=== PATIENT | male | born 1965 | race Caucasian/White ===

== ENCOUNTER 2022-03-11 21:48 | Inpatient (IN) | payer OTHER ==
[~2022-03-11] VITALS: Ht 177.8 cm; Wt 79.8 kg
[2022-03-11 22:38] LABS: BASOPHILS PERCENT AUTO 0 % (0-2); EOSINOPHILS PERCENT AUTO 0 % (0-6); Hematocrit 26.8 % (37.0-53.0); MONOCYTES PERCENT AUTO 6 % (4-13); Mean Corpuscular Volume 98 fL (80-100); Mean Platelet Volume 10.5 fL (9.1-12.4); Platelet Count 142 K/mm3 (150-400); RDW Coefficient Variation 12.1 % (11.7-14.2); Red Blood Cell Count 2.75 M/mm3 (4.30-5.90); White Blood Cell Count 4.68 K/mm3 (4.00-11.30)
[2022-03-11 23:06] LABS: BASOPHILS ABSOLUTE AUTO 0.02 K/mm3 (0.00-0.23); IMMATURE GRAN ABSOLUTE AUTO 0.03 K/mm3 (0.00-0.10); IMMATURE GRAN PERCENT AUTO 1 % (0-1); LYMPHOCYTES ABSOLUTE AUTO 0.17 K/mm3 (0.84-5.20); LYMPHOCYTES PERCENT AUTO 4 % (21-46); NEUTROPHILS PERCENT AUTO 89 % (41-73)
[2022-03-11 23:09] LABS: Albumin, Blood 4.3 g/dL (3.4-5.0); Albumin/Globulin Ratio 1.2 (0.8-1.8); Bilirubin, Total 1.3 mg/dL (0.1-1.0); Bun/Creatinine Ratio 22.3 (12.0-20.0); Calcium, Blood 9.6 mg/dL (8.5-10.1); Creatinine, Blood 1.03 mg/dL (0.60-1.20); Globulin, Blood 3.5 g/dL (2.2-4.0); Potassium, Blood 4.9 mmol/L (3.5-5.5); Total Protein, Blood 7.8 g/dL (6.4-8.2)
[2022-03-12 00:40] LABS: U Amphetamine Screen Not Detected; U Barbituate Screen Not Detected; U Benzodiazapine Screen Not Detected; U Buprenorphine Screen Not Detected; U Cannabinoids Screen Not Detected; U Cocaine Screen Not Detected; U Methadone Screen Not Detected; U Methamphetamine Screen Not Detected; U Opiates Screen Not Detected; U Oxycodone Screen Not Detected; U Phencyclidine Screen Not Detected; U Propoxyphene Screen Not Detected
[2022-03-12 03:19] LABS: Albumin, Blood 3.7 g/dL (3.4-5.0); Albumin/Globulin Ratio 1.1 (0.8-1.8); Bilirubin, Total 1.4 mg/dL (0.1-1.0); Bun/Creatinine Ratio 21.2 (12.0-20.0); Calcium, Blood 8.8 mg/dL (8.5-10.1); Creatinine, Blood 1.04 mg/dL (0.60-1.20); Globulin, Blood 3.5 g/dL (2.2-4.0); Total Protein, Blood 7.2 g/dL (6.4-8.2)
--- NOTE | 2022-03-12 03:45 | NUR ---
PT ARRIVED FROM ED AT 0345. PRECEDEX GTT 0.4 MCG/KG/HR. ALERT AND ORIENTED TO PERSON, PLACE AND TIME. CIWA < 8. MILD TREMOR WHEN LIMBS OUTSTRETCHED. BILATERAL AC [address] VITALS STABLE AND ON ROOM AIR.
--- NOTE | 2022-03-12 05:48 | NUR ---
END OF SHIFT REPORT NEURO: PT A&OX4. NO COMPLAINT OF HEADACHE OR VISION CHANGES. CIWA < 8. MILD TREMORS WITH LIMBS EXTENDED. PT COMPLAINS OF NUMBNESS/TINGLING TO BILATERAL FEET. SAYS IT HAS BEEN PRESENT FOR 6 MONTHS. GENERALIZED WEAKNESS. BUE CAN OVERCOME RESISTANCE. BLE CANNOT OVERCOME RESISTANCE. GROSS SENSATION INTACT. ED REPORTED PT HAD 3 SECOND SEIZURE. SEIZURE PRECAUTIONS ON BED. RESPIRATORY: RA. SATTING > 95%. BREATH SOUNDS CLEAR BILATERALLY. PT DENIES SOB/DYSPNEA NS AT 100 ML/HR PRECEDEX 0.4 MCG/KG/HR CARDIAC: NSR. HR 70s-80s. BP 120s-70s MAP >65. CAP REFILL < 3 SECONDS. PT DENIES CHEST PAIN. GI/: HYPERACTIVE BOWEL SOUNDS. LAST INTAKE WAS 12/20 AM. CONTINENT OF BLADDER. PUTTING OUT ADEQUATE AMOUNTS OF YELLOW URINE. ASSISTANCE WITH URINAL REQUIRED. MUSCULOSKELETAL: GENERALIZED WEAKNESS. BEDREST DUE TO SEIZURE RISK AND PREVIOUS FALLS. INTEGUMENTARY: BILATERAL HIP BRUISES. RIGHT SHOULDER BRUISE. COCCYX NOT INTACT, BRUISE AND SKIN TEAR PRESENT. REDNESS TO SCROTUM AND PERIANAL.
[2022-03-12 06:09] LABS: Magnesium, Blood 1.5 mg/dL (1.6-2.4); Thyroid Stimulating Hormone 1.18 uIU/mL (0.360-4.800)
[2022-03-12 06:45] LABS: Bun/Creatinine Ratio 20.8 (12.0-20.0); Calcium, Blood 8.8 mg/dL (8.5-10.1); Creatinine, Blood 1.01 mg/dL (0.60-1.20); Potassium, Blood 4.4 mmol/L (3.5-5.5)
[2022-03-12 07:41] LABS: BASOPHILS ABSOLUTE AUTO 0.01 K/mm3 (0.00-0.23); BASOPHILS PERCENT AUTO 0 % (0-2); EOSINOPHILS PERCENT AUTO 0 % (0-6); Hematocrit 23.7 % (37.0-53.0); IMMATURE GRAN ABSOLUTE AUTO 0.03 K/mm3 (0.00-0.10); IMMATURE GRAN PERCENT AUTO 1 % (0-1); LYMPHOCYTES ABSOLUTE AUTO 0.25 K/mm3 (0.84-5.20); LYMPHOCYTES PERCENT AUTO 6 % (21-46); MONOCYTES ABSOLUTE AUTO 0.27 K/mm3 (0.16-1.47); MONOCYTES PERCENT AUTO 7 % (4-13); Mean Corpuscular Volume 98 fL (80-100); Mean Platelet Volume 10.8 fL (9.1-12.4); NEUTROPHILS ABSOLUTE AUTO 3.43 K/mm3 (1.96-9.15); NEUTROPHILS PERCENT AUTO 86 % (41-73); Platelet Count 112 K/mm3 (150-400); RDW Standard Deviation 43.6 fL (35.1-46.3); Red Blood Cell Count 2.41 M/mm3 (4.30-5.90); White Blood Cell Count 3.99 K/mm3 (4.00-11.30)
[2022-03-12 10:23] LABS: Bun/Creatinine Ratio 20.8 (12.0-20.0); Calcium, Blood 8.9 mg/dL (8.5-10.1); Creatinine, Blood 1.01 mg/dL (0.60-1.20); Potassium, Blood 4.3 mmol/L (3.5-5.5)
[2022-03-12 14:47] LABS: Bun/Creatinine Ratio 24.5 (12.0-20.0); Calcium, Blood 8.9 mg/dL (8.5-10.1); Creatinine, Blood 1.02 mg/dL (0.60-1.20); Potassium, Blood 4.2 mmol/L (3.5-5.5)
--- NOTE | 2022-03-12 17:17 | NUR ---
SHIFT SUMMARY NO ACUTE CHANGES THIS SHIFT. PT REMAINS SEDATED WITH PRECEDEX AT 0.4 MCG/KG/HR. PT AWAKENS EASILY TO VERBAL STIMULI AND IS ALERT AND ORIENTED WHEN AWAKE. PT WITH PERIODS OF FORGETFULNESS. PT WITH MILD TREMORS WITH MOVEMENT. PT ABLE TO REPOSITION SELF IN BED FOR COMFORT. PT INCONTINENT OF URINE WITH ATTENDS IN PLACE, BUT ABLE TO ASK FOR HELP WITH URINAL AT TIMES. PT LAC TO FOREHEAD IS UNCHANGED. VITAL SIGNS STABLE. WILL CONTINUE TO MONITOR AND REPORT OFF TO ONCOMING RN.
[2022-03-12 18:39] LABS: Bun/Creatinine Ratio 25.6 (12.0-20.0); Calcium, Blood 9.3 mg/dL (8.5-10.1); Creatinine, Blood 0.98 mg/dL (0.60-1.20); Potassium, Blood 4.2 mmol/L (3.5-5.5)
[2022-03-13 03:55] LABS: BASOPHILS ABSOLUTE AUTO 0.03 K/mm3 (0.00-0.23); BASOPHILS PERCENT AUTO 1 % (0-2); EOSINOPHILS ABSOLUTE AUTO 0.02 K/mm3 (0.00-0.68); EOSINOPHILS PERCENT AUTO 1 % (0-6); Hematocrit 25.6 % (37.0-53.0); Hemoglobin 9.6 g/dL (13.5-17.5); IMMATURE GRAN ABSOLUTE AUTO 0.02 K/mm3 (0.00-0.10); IMMATURE GRAN PERCENT AUTO 1 % (0-1); LYMPHOCYTES PERCENT AUTO 17 % (21-46); MONOCYTES ABSOLUTE AUTO 0.34 K/mm3 (0.16-1.47); MONOCYTES PERCENT AUTO 10 % (4-13); Mean Corpuscular HGB 38.4 pg (26.0-34.0); Mean Corpuscular HGB Conc 37.5 g/dL (31.5-36.5); Mean Corpuscular Volume 102 fL (80-100); Mean Platelet Volume 11.2 fL (9.1-12.4); NEUTROPHILS ABSOLUTE AUTO 2.48 K/mm3 (1.96-9.15); NEUTROPHILS PERCENT AUTO 71 % (41-73); Platelet Count 129 K/mm3 (150-400); RDW Coefficient Variation 12.1 % (11.7-14.2); RDW Standard Deviation 45.3 fL (35.1-46.3); White Blood Cell Count 3.49 K/mm3 (4.00-11.30)
[2022-03-13 04:21] LABS: Bun/Creatinine Ratio 22.6 (12.0-20.0); Calcium, Blood 9.1 mg/dL (8.5-10.1); Creatinine, Blood 0.93 mg/dL (0.60-1.20); Potassium, Blood 4.2 mmol/L (3.5-5.5)
--- NOTE | 2022-03-13 07:08 | NUR ---
END OF SHIFT REPORT DRIPS: PRECEDEX 0.4 MCG/KG/HR NEURO: PT A&OX4. NO COMPLAINT OF HEADACHE OR VISION CHANGES. CIWAS < 8. MILD TREMORS WITH LIMBS EXTENDED. PT COMPLAINS OF NUMBNESS/TINGLING TO BILATERAL FEET. SAYS IT HAS BEEN PRESENT FOR 6 MONTHS. GENERALIZED WEAKNESS. BUE CAN OVERCOME RESISTANCE. BLE CANNOT OVERCOME RESISTANCE. GROSS SENSATION INTACT. NO SEIZURES OVERNIGHT. RESPIRATORY: RA. SATTING > 95%. BREATH SOUNDS CLEAR BILATERALLY. PT DENIES SOB/DYSPNEA CARDIAC: NSR. HR 70s-80s. BP 120s-70s MAP >65. CAP REFILL < 3 SECONDS. PT DENIES CHEST PAIN. GI/: MECH SOFT DIET. PASSED SWALLOW EVALUATION. CONTINENT OF BLADDER. PUTTING OUT ADEQUATE AMOUNTS OF YELLOW URINE. ASSISTANCE WITH URINAL REQUIRED. MUSCULOSKELETAL: GENERALIZED WEAKNESS. BEDREST DUE TO SEIZURE RISK AND PREVIOUS FALLS. INTEGUMENTARY: BILATERAL HIP BRUISES. RIGHT SHOULDER BRUISE. COCCYX NOT INTACT, BRUISE AND SKIN TEAR PRESENT. REDNESS TO SCROTUM AND PERIANAL.
--- NOTE | 2022-03-13 17:39 | NUR ---
SHIFT SUMMARY PT HAS REMAINED AWAKE MOST OF THE SHIFT. PT IS ALERT AND ORIENTED AND FOLLOWS SIMPLE DIRECTIONS WELL. PT IS IMPULSIVE AND FORGETFUL. PT FREQUENTLY ATTEMPTING TO GET OUT OF BED WITHOUT NURSING STAFF TO ASSIST DESPITE FREQUENT REMINDERS. BED ALARM REMAINS ON. PRECEDEX ON STANDBY MOST OF THIS SHIFT. PT BECOMING INCREASINGLY TREMULOUS AND FORGETFUL. PRECEDEX RESTARTED THIS EVENING AT 0.5 MCG/KG/HR. PT MED WITH LIBRIUM THROUGHOUT THE SHIFT PRN. VITAL SIGNS REMAIN STABLE. PT WITH MULTIPLE INCONTINENT BM'S AND VOIDS THIS SHIFT. NO SEIZURE ACTIVITY NOTED. WILL CONTINUE TO MONITOR AND REPORT OFF TO ONCOMING RN.
--- NOTE | 2022-03-13 19:09 | NUR ---
ASSUMED CARE OF PT AT 1900. REPORT RECEIVED AT BEDSIDE. IV DRIPS VERIFIED WITH OFFGOING RN. PT CURRENTLY SLEEPING. PRECEDEX AT 0.5 MCG'S. WILL REVIEW CHART AND PLAN OF CARE FOR THIS PT.
--- NOTE | 2022-03-13 20:01 | NUR ---
PT AWAKENS FOR ASSESSMENT. IS ABLE TO STATE HE IS IN [place], BUT TAKES A MOMENT TO RECALL HE IS IN THE HOSPITAL. WILL MEDICATE PT PER CIWA SCORING. LIBRIUM NEEDED. SPOKE WITH RESIDENT ABOUT AM LABS. ORDER RECEIVED.
--- NOTE | 2022-03-13 22:46 | NUR ---
PT AWAKENS AND IS NOTED TO BE TRYING TO GET OUT OF BED WITHOUT CALLING. ADDRESSED PT AND HE NEEDS TO URINATE. ASSISTED PT WITH URINAL. VOIDS Q.S. DID MEDICATE PT WITH 50 MG LIBRIUM. PT WAS ABLE TO SWALLOW MEDS WITHOUT ISSUES.
--- NOTE | 2022-03-14 02:06 | NUR ---
PT CONTINUES ON PRECEDEX DRIP. WHEN AWAKE, PT DOES TAKE A MOMENT TO REORIENT HIMSELF. OFFER OF BATHROOM GIVEN EACH TIME PT IS AWAKE. HAS VOIDED ONCE SO FAR THIS SHIFT.
--- NOTE | 2022-03-14 03:02 | NUR ---
PT HAS SINUS GALINA WITH RATE DROPS TO 49. HAVE DECREASED PRECEDEX DRIP TO 0.3 MCG'S. WILL CONTINUE TO MONITOR.
[2022-03-14 03:32] LABS: BASOPHILS ABSOLUTE AUTO 0.04 K/mm3 (0.00-0.23); BASOPHILS PERCENT AUTO 1 % (0-2); EOSINOPHILS ABSOLUTE AUTO 0.04 K/mm3 (0.00-0.68); EOSINOPHILS PERCENT AUTO 1 % (0-6); Hematocrit 26.3 % (37.0-53.0); Hemoglobin 9.7 g/dL (13.5-17.5); IMMATURE GRAN ABSOLUTE AUTO 0.01 K/mm3 (0.00-0.10); IMMATURE GRAN PERCENT AUTO 0 % (0-1); LYMPHOCYTES ABSOLUTE AUTO 0.73 K/mm3 (0.84-5.20); LYMPHOCYTES PERCENT AUTO 23 % (21-46); MONOCYTES ABSOLUTE AUTO 0.37 K/mm3 (0.16-1.47); MONOCYTES PERCENT AUTO 12 % (4-13); Mean Corpuscular HGB 38.5 pg (26.0-34.0); Mean Corpuscular HGB Conc 36.9 g/dL (31.5-36.5); Mean Corpuscular Volume 104 fL (80-100); Mean Platelet Volume 10.3 fL (9.1-12.4); NEUTROPHILS ABSOLUTE AUTO 1.94 K/mm3 (1.96-9.15); NEUTROPHILS PERCENT AUTO 62 % (41-73); Platelet Count 146 K/mm3 (150-400); RDW Coefficient Variation 12.3 % (11.7-14.2); RDW Standard Deviation 46.5 fL (35.1-46.3); Red Blood Cell Count 2.52 M/mm3 (4.30-5.90); White Blood Cell Count 3.13 K/mm3 (4.00-11.30)
--- NOTE | 2022-03-14 03:45 | NUR ---
ASSUMED CARE OF PT @0345 FROM BIGG RODRIGUEZ. PT VITALS AND O400 ASSESSMENT DONE. PT SLEEPING. HR SB 50'S, SBP 110-120, SPO2 100% ON RA, RR 18. PRECEDEX 0.3MCG/KG/HR INFUSING, TKO ON SB.
[2022-03-14 03:58] LABS: Albumin, Blood 3.6 g/dL (3.4-5.0); Bilirubin, Total 0.9 mg/dL (0.1-1.0); Bun/Creatinine Ratio 19.8 (12.0-20.0); Calcium, Blood 9.6 mg/dL (8.5-10.1); Creatinine, Blood 1.01 mg/dL (0.60-1.20); Globulin, Blood 3.6 g/dL (2.2-4.0); Magnesium, Blood 2.2 mg/dL (1.6-2.4); Potassium, Blood 4.4 mmol/L (3.5-5.5); Total Protein, Blood 7.2 g/dL (6.4-8.2)
--- NOTE | 2022-03-14 06:00 | NUR ---
SUMMARY NO ACUTE EVENTS SINCE ASSUMING CARE OF PT. ASSESSMENTS REMAIN UNCHANGED. PT AWAKE AND ORIENTED. PLEASANT AND COOPERATIVE WITH CARE. DENIES PAIN OR SOB. HR 50-60'S WHEN PT IS SLEEPING, 70-80'S WHEN AWAKE. RR 18, SPO2 >94% ON RA. BP STABLE. PRECEDEX 0.3MCG/KG/HR INFUSING.
--- NOTE | 2022-03-14 08:00 | NUR ---
Assumed care for pt at 0700. Pt currently on Precedex @ 0.3 mcg/kr/hr samy NICOLAS. Pt A&Ox4, GCS 15, on RA w/ no complaints.
--- NOTE | 2022-03-14 09:18 | NUR ---
Precedex gtt stopped to trial pt response.
--- NOTE | 2022-03-14 13:59 | NUR ---
Pt stood and pivoted into recliner after sitting on the side of the bed for 2 minutes. x1 assist w/ poor balance and impulsitivty. Tolerated sitting upright in the recliner x10 min before requesting to get back into bed, the recliner "hurt his hips." Pt was able to stand and pivot back into the bed x1 assist. Denies use of cane or walker at home.
--- NOTE | 2022-03-14 17:55 | NUR ---
Precedex gtt stopped at 0917 this morning. Pt CIWA throughout the shift have been <8, last at 1626 was 4. Pt mentation has improved and he follows commands. He has sat up in the recliner x2 today and walked a short distance in the room w/ PT using a walker and a gait belt; he lost stamina quickly. Plan to eat meals upright in the chair, pt agreeable.
--- NOTE | 2022-03-14 20:00 | NUR ---
ASSUMED CARE OF PT AT 1900. REPORT RECEIVED. PT PRESENTS IN BED. ALERT AND SOMEWHAT ORIENTED. DOES HAVE SOME DELAY WITH ANSWERING QUESTIONS. NO ACTIVE TREMORS NOTED. WILL REVIEW CHART AND PLAN OF CARE FOR THIS PT.
[2022-03-15 04:04] LABS: BASOPHILS ABSOLUTE AUTO 0.07 K/mm3 (0.00-0.23); BASOPHILS PERCENT AUTO 2 % (0-2); EOSINOPHILS ABSOLUTE AUTO 0.03 K/mm3 (0.00-0.68); EOSINOPHILS PERCENT AUTO 1 % (0-6); Hematocrit 26.1 % (37.0-53.0); Hemoglobin 9.5 g/dL (13.5-17.5); IMMATURE GRAN ABSOLUTE AUTO 0.02 K/mm3 (0.00-0.10); IMMATURE GRAN PERCENT AUTO 1 % (0-1); LYMPHOCYTES PERCENT AUTO 16 % (21-46); MONOCYTES PERCENT AUTO 14 % (4-13); Mean Corpuscular HGB 38.3 pg (26.0-34.0); Mean Corpuscular HGB Conc 36.4 g/dL (31.5-36.5); Mean Corpuscular Volume 105 fL (80-100); Mean Platelet Volume 10.3 fL (9.1-12.4); NEUTROPHILS ABSOLUTE AUTO 2.86 K/mm3 (1.96-9.15); NEUTROPHILS PERCENT AUTO 67 % (41-73); Platelet Count 172 K/mm3 (150-400); RDW Coefficient Variation 12.3 % (11.7-14.2); RDW Standard Deviation 47.4 fL (35.1-46.3); Red Blood Cell Count 2.48 M/mm3 (4.30-5.90); White Blood Cell Count 4.28 K/mm3 (4.00-11.30)
[2022-03-15 04:42] LABS: Albumin, Blood 3.6 g/dL (3.4-5.0); Bilirubin, Total 0.7 mg/dL (0.1-1.0); Bun/Creatinine Ratio 22.9 (12.0-20.0); Calcium, Blood 9.3 mg/dL (8.5-10.1); Creatinine, Blood 1.09 mg/dL (0.60-1.20); Globulin, Blood 3.6 g/dL (2.2-4.0); Potassium, Blood 3.7 mmol/L (3.5-5.5); Total Protein, Blood 7.2 g/dL (6.4-8.2)
--- NOTE | 2022-03-15 06:34 | NUR ---
PT HAS BEEN VERY ACTIVE THIS NIGHT. INCREASING IN CIWA SCORING. STILL REMAINS < 10. HAVE NOT RESTARTED PRECEDEX. DID MEDICATE PT WITH LIBRIUM, AND ONCE WITH LORAZEPAM. PT HAS MADE SEVERAL ATTEMPTS TO GET OUT OF BED. BED ALARM ON. PT WANTED UP TO RECLINER CHAIR, AND SOON THEREAFTER WANTED TO RETURN TO BED. PT UP SECONDARY TO WANTING TO GO TO TOILET. WHEN STANDING, PT WAS VERY UNSTEADY AND NEEDED SUPPORT TO MOVE. PT TO BEDSIDE COMMODE AND VOICED HE WAS NOT HAPPY ABOUT NOT WALKING TO TOILET. REFUSED TO HAVE BM ON BEDSIDE COMMODE. PT CURRENTLY IN BED. HE REQUESTED THAT PREP MANAGER PUT HIS SIDE RAILING DOWN SO HE COULD GET OUT OF BED AND WALK AROUND. HE WAS REMINDED THAT HE HAS BEEN HAVING DIFFICULTY WITH HOLDING HIS OWN WEIGHT, AND WALKING. WILL CONTINUE TO MONITOR PT, AND WILL REPORT OFF TO ONCOMING RN.
--- NOTE | 2022-03-15 08:00 | NUR ---
Assumed care of pt at 0700 from [place]. Overnight pt became more aggitated requiring both linrium and ativan admin. A&Ox3-4 though he remains impulsive requiring a bed alarm. Pt still required x1 assist minimum to stand and sit in the bedside recliner.
--- NOTE | 2022-03-15 10:30 | NUR ---
Pt has become increasingly confused and aggitated requiring multiple doses of ativan IVP. Spoke w/ Dr. Peterson and will resume a Precedex gtt on the pt.
--- NOTE | 2022-03-15 17:51 | NUR ---
Pt became increasingly confused and impulsive throughout the morning. After multiple doses of Ativan IVP, contacted Dr. Peterson wo reordered a Precedex gtt. Pt CIWA and agitation decreased markedly after beginning Precedex gtt infusion. Pt given a bath and linen change in the afternoon and a condom cath was placed. Pt remains on Precedex gtt at 0.2 mcg/kg/min.
--- NOTE | 2022-03-15 19:33 | NUR ---
ASSUMED CARE OF PT AT 1900. REPORT RECEIVED AT BEDSIDE. PT ON PRECEDEX DRIP 0.2 MCG'S/KG. PT CURRENTLY SLEEPING. WILL REVIEW CHART AND PLAN OF CARE FOR THIS PT.
--- NOTE | 2022-03-15 22:19 | NUR ---
PT HAD AWAKEN, AND PULLED OFF HIS GOWN, AND WAS ATTEMPTING TO GET OUT OF BED. REDIRECTED PT AND REPLACED HIS GOWN. PT CURRENTLY SLEEPING. DOES DEMONSTRATE A SLEEP-APNEA TYPE BREATHING PATTERN. DOES MANTAIN > 90 PERCENT SATURATIONS.
[2022-03-16 03:42] LABS: BASOPHILS ABSOLUTE AUTO 0.06 K/mm3 (0.00-0.23); BASOPHILS PERCENT AUTO 2 % (0-2); EOSINOPHILS PERCENT AUTO 3 % (0-6); Hemoglobin 9.5 g/dL (13.5-17.5); IMMATURE GRAN ABSOLUTE AUTO 0.02 K/mm3 (0.00-0.10); IMMATURE GRAN PERCENT AUTO 1 % (0-1); LYMPHOCYTES ABSOLUTE AUTO 0.69 K/mm3 (0.84-5.20); LYMPHOCYTES PERCENT AUTO 17 % (21-46); MONOCYTES ABSOLUTE AUTO 0.75 K/mm3 (0.16-1.47); MONOCYTES PERCENT AUTO 18 % (4-13); Mean Corpuscular HGB 37.3 pg (26.0-34.0); Mean Corpuscular HGB Conc 35.2 g/dL (31.5-36.5); Mean Corpuscular Volume 106 fL (80-100); NEUTROPHILS ABSOLUTE AUTO 2.45 K/mm3 (1.96-9.15); NEUTROPHILS PERCENT AUTO 60 % (41-73); Platelet Count 199 K/mm3 (150-400); RDW Coefficient Variation 12.5 % (11.7-14.2); RDW Standard Deviation 48.7 fL (35.1-46.3); Red Blood Cell Count 2.55 M/mm3 (4.30-5.90); White Blood Cell Count 4.07 K/mm3 (4.00-11.30)
[2022-03-16 04:03] LABS: Albumin, Blood 3.6 g/dL (3.4-5.0); Bilirubin, Total 0.6 mg/dL (0.1-1.0); Bun/Creatinine Ratio 23.3 (12.0-20.0); Calcium, Blood 9.7 mg/dL (8.5-10.1); Creatinine, Blood 0.82 mg/dL (0.60-1.20); Globulin, Blood 3.6 g/dL (2.2-4.0); Potassium, Blood 3.8 mmol/L (3.5-5.5); Total Protein, Blood 7.2 g/dL (6.4-8.2)
--- NOTE | 2022-03-16 06:30 | NUR ---
PT CONTINUED ON PRECEDEX AT 0.2 MCG'S/KG/HOUR. WAS ABLE TO AWAKEN EASILY AND WAS ABLE TO STATE WHERE HE IS AND THAT HE WAS IN THE ICU. PT HAS HAD SEVERAL ATTEMPTS TO GET OUT OF BED, AND WHEN HE WAS AWAKE, PT WOULD REMOVE HIS TELEMETRY LEADS, AND REMOVE HIS GOWN. PT WOULD NOT HAVE A REASON FOR DOING THIS. WILL CONTINUE TO MONITOR PT, AND WILL REPORT OFF TO ONCOMING RN.
--- NOTE | 2022-03-16 07:56 | NUR ---
Assumed care of pt this morning at 0700. He remains on Precedex gtt @ 0.2 mcg/kg/hr and slept through most of the night w/ only x1 attempt at getting out of bed. The condom cath remains in place.
--- NOTE | 2022-03-16 09:30 | NUR ---
Replaced condom cath w/ new 30 mm cath.
[2022-03-17 04:00] LABS: BASOPHILS ABSOLUTE AUTO 0.06 K/mm3 (0.00-0.23); BASOPHILS PERCENT AUTO 2 % (0-2); EOSINOPHILS ABSOLUTE AUTO 0.06 K/mm3 (0.00-0.68); EOSINOPHILS PERCENT AUTO 2 % (0-6); Hematocrit 26.3 % (37.0-53.0); Hemoglobin 9.5 g/dL (13.5-17.5); IMMATURE GRAN ABSOLUTE AUTO 0.02 K/mm3 (0.00-0.10); IMMATURE GRAN PERCENT AUTO 1 % (0-1); LYMPHOCYTES PERCENT AUTO 20 % (21-46); MONOCYTES ABSOLUTE AUTO 0.68 K/mm3 (0.16-1.47); MONOCYTES PERCENT AUTO 20 % (4-13); Mean Corpuscular HGB 38.3 pg (26.0-34.0); Mean Corpuscular HGB Conc 36.1 g/dL (31.5-36.5); Mean Corpuscular Volume 106 fL (80-100); Mean Platelet Volume 9.6 fL (9.1-12.4); NEUTROPHILS ABSOLUTE AUTO 1.94 K/mm3 (1.96-9.15); NEUTROPHILS PERCENT AUTO 56 % (41-73); Platelet Count 210 K/mm3 (150-400); RDW Coefficient Variation 12.5 % (11.7-14.2); RDW Standard Deviation 48.8 fL (35.1-46.3); Red Blood Cell Count 2.48 M/mm3 (4.30-5.90); White Blood Cell Count 3.46 K/mm3 (4.00-11.30)
[2022-03-17 04:30] LABS: Albumin, Blood 3.3 g/dL (3.4-5.0); Albumin/Globulin Ratio 0.9 (0.8-1.8); Bilirubin, Total 0.5 mg/dL (0.1-1.0); Bun/Creatinine Ratio 23.3 (12.0-20.0); Calcium, Blood 9.4 mg/dL (8.5-10.1); Creatinine, Blood 0.94 mg/dL (0.60-1.20); Globulin, Blood 3.7 g/dL (2.2-4.0); Potassium, Blood 3.8 mmol/L (3.5-5.5)
--- NOTE | 2022-03-17 06:34 | NUR ---
END OF SHIFT REPORT NEURO: DROWSY WITH INTERMITTENT PERIODS OF ALERTNESS. ORIENTED X 3-4. FOLLOWS COMMANDS. GENERALIZED WEAKNESS. ATAXIC GAIT. GROSS SENSATION PRESENT IN ALL FOUR EXTREMITIES. C/O OF CHRONIC NUMBNESS TO BILATERAL FEET. CARDIAC: PT DENIES CHEST PAIN. HR 50s-60s. BP 110s/80s. CAP REFILL < 3 SECONDS. RESPIRATORY: 2L NC OVERNIGHT. BREATH SOUNDS CLEAR BILATERALLY. ETCO2 DROPPED TO ZERO MULTIPLE TIMES OVERNIGHT WHILE SLEEPING. PT DENIES SOB. GI/: NO BOWEL MOVEMENT OVERNIGHT. NORMOACTIVE BOWEL SOUNDS. PT DENIES ABDOMINAL TENDERNESS. CONDOM CATH ON DRAINING TO GRAVITY BAG. PUTTING OUT MINIMAL AMOUNTS OF JAROCHO URINE. BLADDER SCANN VOLUME AT 0000 WAS 188 ML. INTERMITTENT CONTINENCE. INTEGUMENTARY: BATH OVERNIGHT. BILATERAL HIP BRUISES. RIGHT SHOULDER BRUISE. PETECHIAE TO LEFT FOREARM. SKIN TEAR TO COCCYX. LACERATION TO FOREHEAD. RASH ON FACE. SEE PICTURES IN CHART FOR MORE INFO.
--- NOTE | 2022-03-17 08:00 | NUR ---
CIWA 7 THIS AM. MED WITH LIBRIUM 50 MG PO-PRECEDEX DRIP OFF. PT DENIES PAIN OR SOB. VSS. ECG SHOWS SR TO ST WITH RATE 90-110'S. BP STABLE. LUNGS CLEAR-SATS>90% ON RA. PT DENIES GI DISTRESS. PT REQUESTED URINAL AND ABLE TO VOID 200 CC OR YELLOW URINE WITHOUT DIFFICULTY. AM CARE, VANI CARE DONE, THEN PT ASSISTED OOB TO CHAIR WITH 2 PERSON ASSIST-USING GAIT BELT AND WALKER. PT FOLLOWING COMMANDS AND VERY COOPERATIVE WITH CARE THIS AM. MEAL TRAY PROVIDED. CALL LIGHT WITHIN REACH.
--- NOTE | 2022-03-17 08:30 | NUR ---
PT UTILIZED CALL SYSTEM TO REQUEST ASSISTANCE BACK TO BED. 2 PERSON ASSIST PROVIDED. PT ABLE TO MAKE A PHONE CALL TO HIS "GIRLFRIEND" AFTER BRIEF INSTRUCTION ON HOW TO USE THE PHONE.
--- NOTE | 2022-03-17 12:00 | NUR ---
PT REPORTS 8/10 LOW BACK PAIN. PT HAS BEEN OFF OF PRECEDEX SINCE 0730 THIS AM. PT COOPERATIVE WITH CARE. ECG SHOWS SR WITH RATE 90'S. LUNGS CLEAR-NO NOTED SOB. SATS>90% ON RA. DR. RUIZ UPDATED AND REQUESTED STATUS CHANGE AND TYLENOL FOR PAIN. PT ASSISTED OOB TO CHAIR FOR LUNCH-TOLERATED WELL. PT ATE 50% OF MEAL.
--- NOTE | 2022-03-17 15:00 | NUR ---
PT SITTING AT BEDSIDE. HE DID NOT CALL FOR ASSIST. PT STATES THAT HE WANTS TO GET HIS PANTS ON SO THAT HE CAN GO OUTSIDE TO SMOKE. PT EASILY RE-DIRECTED. PT AGREES TO NICOTINE PATCH. DR. RUIZ CONTACTED REQUESTING NICOTINE PATCH FOR PT.
--- NOTE | 2022-03-17 16:00 | NUR ---
PT REPORTS 7/10 LOW BACK PAIN. TEMP 100.2-MED WITH TYLENOL 650 MG PO-SEE EMAR. CIWA 4-MED WITH LIBRIUM 50 MG PO X 1-SEE EMAR. NICOTINE PATCH APPLIED-SEE EMAR. ECG CONTINUES SR WITH RATE 90'S. BP STABLE. LUNGS CLEAR. NO NOTED SOB. PT TOLERATING PO WELL. NO ACUTE DISTRESS NOTED-CALL LIGHT WITHIN REACH.
--- NOTE | 2022-03-17 19:09 | NUR ---
ASSUMED CARE OF PT AT 1900 PT SLEEPING IN ROOM WITH NO VISITORS AT THIS TIME. BP STABLE SR. HR 83. WEARING ATTENDS AND ASKS FOR URINAL. DAYSHOFT REPORT OF NO BM TODAY. LACERATION TO FOREHEAD C/D, MANY BRUISED AREAS IN VARIOUS STAGES OF HEALING. SEE FULL ASSESSMENT FOR FURTHER INFORMATION.
--- NOTE | 2022-03-18 05:11 | NUR ---
END OF SHIFT SUMMARY A/O X2 WITH CONFUSION ON WHERE HE IS AND WHY HE IS HERE. PT RESTED ONLY INTERMITENTLY THROUGH THE NIGHT. MANY EPISODES OF CONFUSION, PT THINKS HE IS AT HOME WHEN WOKEN UP. BP STABLE UNTIL 0400 THIS AM. HTN 160'S SYSTOLIC WITH TEMP OF 99.8. RELIEVED WITH LIBRIUM AND TYLENOL. HR 90'S. PT IS ABLE TO MAKE NEEDS KNOWN WITH USING URINAL AT BEDSIDE. NO BM THIS SHIFT. LUNG SOUNDS CLEAR BILATERALLY THROUGHOUT WITH NON-PRODUCTIVE COUGH. WILL CONTINUE TO MONITOR UNTIL REPORT GIVEN TO AM SHIFT.
--- NOTE | 2022-03-18 07:55 | NUR ---
ASSUMED CARE: REPORT RECEIVED FROM ELIZABETH Burt, RNs. ASSUMED CARE OF THIS PT AT APPROX 0700. ON ASSESSMENT, THE PT IS AWAKE, A&O TO SELF & FOLLOWING DIRECTIONS. FORGETFUL TO PLACE, TIME & DATE. MAKES JOKES W/ STAFF MEMBERS WHEN HE IS UNABLE TO ANSWER QUESTIONS OR CONFUSED, LAUGHING & TELLING THIS RN THAT WE "ARE IN A [facility]" THIS AM WHEN ASKED LOCATION. LS ARE CLEAR T/O, PT ON RA W/ O2 SATS > 92%. MONITOR SHOWS SR-ST W/ HR 90-100s, HTN W/ DBP 100s. PT HAS NO GI COMPLAINTS, STS BEING HUNGRY FOR BREAKFAST. VOIDS USING THE URINAL IN GENERAL BUT IS OCCASIONALLY INCONTINENT, ATTENDS IN PLACE CURRENTLY CDI. SKIN OVERALL FRAGILE, ECCHYMOTIC & NUMEROUS AREAS OF ABRASIONS. PER PRIOR RN, NO NEW ABRASIONS OR ECCHYMOSIS S/P FALL THIS AM. SEE PRIOR RN UPDATE & FALL INTERVENTION DOCUMENTATION FOR DETAILS. WILL CONTINUE TO MONITOR & UPDATE NEEDED.
--- NOTE | 2022-03-18 15:54 | NUR ---
TRANSFER TO MEDICAL FLOOR: REPORT HAS BEEN GIVEN TO SRINIVAS Timmons RN TO ASSUME CARE. PT TAKEN OUT VIA BED BY KANIKA MULLINS, AT APPROX 1445.
--- NOTE | 2022-03-18 16:01 | NUR ---
TRANSFER PATIENT TRANSFERRED AT 1600 FROM ICU. PATIENT SETTLED INTO ROOM. PATIENT ORIENTED TO CALL LIGHT AND TV CONTROL. PATIENT IS A&O TO SELF CURRENTLY. IV FLUSHES WITHOUT DIFFICULTY. PATIENT VERY PLEASANT. TRANSFERRED TO BED VIA 2P WITH GAIT BELT. PATIENT HAS SLIGHT TREMORS.
--- NOTE | 2022-03-18 17:10 | NUR ---
SHIFT SUMMARY PATIENT DENIES PAIN, NAUSEA, AND SHORTNESS OF BREATH. PATIENT IS A 2P WITH GAIT BELT AND FWW. PATIENT HAS TREMORS. PATIENT IS A&O X2, PATIENT IS VERY PLEASANT AND CRACKS JOKES WITH STAFF. PATIENT HAS ALARM ON BED, BUT USES CALL LIGHT OCCASSIONALLY. PATIENT ATE DINNER WELL. PATIENT TALKS ABOUT HOW HE MISSES HIS DOG. PATIENT CIWA AT 1600 WAS 4. PATIENT PLEASANT AND COOPERATIVE WITH CARE.
--- NOTE | 2022-03-19 05:03 | NUR ---
NURSE PRACTITIONER PHYSICIAN ASSISTANT SUMMARY A/OX2. PT SLOW T/RESPOND, MUMBLED/MUFFLED SPEECH, AND BODY MOVEMENT SLOW/RIGID. PT VERY SLEEPY/DROWSY IN EVENING AND SLEPT WELL T/O THE SHIFT. CONT W/Q4 CIWA ASSESSMENT--SCORE 5-6. PT PLEASANT AND COOPERATIVE. NOT ABLE TO USE CALL LIGHT OR MAKE NEEDS KNOWN. PT INCONTIENENT AND SOAKED ATTENDS BRIEF AND ROBE--DIDN'T CALL BUT WAS FOUND PULLING OFF GOWN/TELE. URINE WAS VERY DARK AND ODOROUS. PT HAS BEEN COUGHING T/O THE NIGHT--COUGH IS SHALLOW BUT WET; MUCOUS IS THICK/FROTHY AND CLEAR. PT ORAL CAVITY HAS STRONG SMELL; RINSED WITH MOUTHWASH 1X AND SWABED WHEN AT BEDSIDE. FALL PRECAUTIONS IN PLACE--BED LOCKED/LOW, ALARM SET, CALL LIGHT IN REACH.
[2022-03-19 05:43] LABS: BASOPHILS ABSOLUTE AUTO 0.07 K/mm3 (0.00-0.23); BASOPHILS PERCENT AUTO 2 % (0-2); EOSINOPHILS ABSOLUTE AUTO 0.05 K/mm3 (0.00-0.68); EOSINOPHILS PERCENT AUTO 1 % (0-6); Hematocrit 28.6 % (37.0-53.0); Hemoglobin 10.1 g/dL (13.5-17.5); IMMATURE GRAN ABSOLUTE AUTO 0.01 K/mm3 (0.00-0.10); IMMATURE GRAN PERCENT AUTO 0 % (0-1); LYMPHOCYTES ABSOLUTE AUTO 1.05 K/mm3 (0.84-5.20); LYMPHOCYTES PERCENT AUTO 23 % (21-46); MONOCYTES ABSOLUTE AUTO 0.93 K/mm3 (0.16-1.47); MONOCYTES PERCENT AUTO 20 % (4-13); Mean Corpuscular HGB 37.8 pg (26.0-34.0); Mean Corpuscular HGB Conc 35.3 g/dL (31.5-36.5); Mean Corpuscular Volume 107 fL (80-100); Mean Platelet Volume 9.8 fL (9.1-12.4); NEUTROPHILS ABSOLUTE AUTO 2.45 K/mm3 (1.96-9.15); NEUTROPHILS PERCENT AUTO 54 % (41-73); Platelet Count 322 K/mm3 (150-400); RDW Standard Deviation 50.9 fL (35.1-46.3); Red Blood Cell Count 2.67 M/mm3 (4.30-5.90); White Blood Cell Count 4.56 K/mm3 (4.00-11.30)
[2022-03-19 06:05] LABS: Calcium, Blood 9.6 mg/dL (8.5-10.1); Creatinine, Blood 0.91 mg/dL (0.60-1.20); Potassium, Blood 3.8 mmol/L (3.5-5.5)
--- NOTE | 2022-03-19 16:54 | NUR ---
alert and oriented, visiual tremors, ambulated in halls with pt, very weak, 2 person transfer. makes needs known, bed alarm on, impulsive at times, easily redirects. ls diminshed, course weak cough, shallow slow respirations. encouraged deep breathing. cream to face infection, ate all meals. no acute changes will relay to pm rn
--- NOTE | 2022-03-20 04:30 | NUR ---
SHIFT SUMMARY; NO ACUTE CHANGES OVERNIGHT. PT SLEPT ALL T/O THE NIGHT. CIWAS DONE, SCORES REMAINED AT A 4 R/T PTS DISORIENTATION AND FELT TREMOR. PT DENIES ANY PAIN, SOB OR ITCHING IN RELATION TO HIS FACIAL RASH. CURRENLTY THE PT IS SLEEPING IN BED WITH THE BED IN THE LOWEST PSOITION AND THE CALL LIGHT WITHIN REACH.
--- NOTE | 2022-03-20 17:35 | NUR ---
SHIFT SUMMARY NO ACUTE CHANGES THIS SHIFT. PT MEDICATED FOR CIWA ONCE THIS SHIFT AND HAS BEEN NEGATIVE FOR CIWA THE REST OF THE DAY. PT WORKED WITH PHYSICAL THERAPY AND REMAINS A 2 PERSON ASSIST TO GET UP. VSS. C/O LOW BACK PAIN AND TREATED PER EMR. PT AGREEABLE TO GET UP TO THE CHAIR FOR MEALS.
--- NOTE | 2022-03-21 04:11 | NUR ---
SHIFT SUMMARY; NO ACUTE CHANGES OVERNIGHT. PT WAS MORE ALERT THIS PM WITH SLEEPFUL PERIODS. PT UP TO BSC TWICE THIS SHIFT, MAX 2 PERSON ASSIST WITH A GAIT BELT. PT IS VERY WEAK. PT PLEASANT AND COOPERATIVE OF CARE. PT REMAINS INCONTINENT OF URINE. PT DID REPORT BACK PAIN LAST NIGHT, MEDICATED PER EMAR. CURRENTLY THE PT IS RESTING IN BED WITH THE BED IN THE LOWEST POSITION AND THE CALL LIGHT AT BEDSIDE. CIWAS DONE, SCORES OF 2,3 AND 4 THIS SHIFT.
--- NOTE | 2022-03-21 17:11 | NUR ---
SHIFT SUMMARY NO ACUTE CHANGES DURING SHIFT. PT ALERT TO SELF, CONFUSED, ABLE TO FOLLOW SIMPLE COMMANDS. PT X 2 ASSIST WITH BELT AND FWW TO BEDSIDE COMMODE. CIWA SCORES REMAIN 3 OR LESS. PT UP TO CHAIR FOR MEALS. PT PENDING PLACEMENT. WILL CONTINUE TO MONITOR. CALL LIGHT WITHIN REACH.
--- NOTE | 2022-03-22 00:49 | NUR ---
Patient removed telemetry form himself, went to replace pads and patient refused and stated "I don't need it anymore", educated on need for telemetry monitory and patient continued to refuse. Hospitalist informed and telemetry discontinued.
--- NOTE | 2022-03-22 01:16 | NUR ---
PRN medication given for withdraw symptoms.
--- NOTE | 2022-03-22 03:21 | NUR ---
Patient resting in bed, medication for withdraw effective.
--- NOTE | 2022-03-22 17:57 | NUR ---
SHIFT SUMMARY PT AxOx2-3 WITH FREQUENT CONFUSION/FORGETFULNESS. PT IS PLEASANT AND COOPERATIVE WITH CARE AND IS REDIRECTABLE. PT HAS SIGNIFICANT PHYSICAL DECONDITIONING AND HAS DIFFICULTY FOLLOWING DIRECTIONS WHEN TRANSFERRING. PT HAS SIGNIFICANT DRY SCALY PATCHES OF SKIN ALL OVER FACE AND THROUGHOUT HAIR ON HEAD. FACE WASHED WITH WET WASH CLOTH AND MEDICATED CREAM APPLIED PER EMAR. PT WORKED WITH PHYSICAL THERAPY THIS SHIFT. 2 MAX ASSIST WITH FWW AND GB FOR TRANSFERS. PT IS MOTIVATED TO MOVE, BUT SEEMS TO PHYSICALLY AND MENTALLY FATIGUE AFTER A FEW MINUTES OF BEING UP. PT'S (STEP?) DAUGHTER, SHELLY, IN ROOM FOR VISIT VISIT THIS SHIFT. SHELLY STATES THAT HER MOM IS JONI'S ROOM MATE AND SHELLY IS PLANNING TO PROVIDE STUDENT AFFAIRS VICE PRESIDENT CARE GIVING FOR JONI WHEN HE RETURNS HOME. LEFT MESSAGE FOR TRANSFORMATION CONSULTANT TO GET A HOLD OF GARIMA DEJESUS TO FOLLOW UP ON DISCHARGE PLANS. PT IS CURRENTLY SITTING IN CHAIR WITH BED ALARM ON AND CALL LIGHT IN REACH. PT DENIES ANY PAIN THIS SHIFT. VITALS REVIEWED. PT DENIES ANY NEEDS AT THIS TIME.
--- NOTE | 2022-03-23 05:23 | NUR ---
Patient resting in room, constantly attempting to get out of bed.
--- NOTE | 2022-03-23 19:05 | NUR ---
SUMMARY- PT ALERT TO SELF, DELUSIONAL. THIS AM STATES THE SKINHEADS WERE OUTSIDE AND GOING TO KILL HIM. MEDICATED WITH LIBRIUM WITH LITTLE EFFECT. PT UP TO CHAIR, SEVERLY ATAXIC, POOR COORDINATION, TOOK 10 MINUTES FOR A PIVOT TX WITH 2 STAFF GAIT AND WALKER TO CHAIR. PT NAPPED AFTER LUNCH FOR A FEW HOURS, THAN AWOKE AND TRIED TO GET OOB, STATING, I NEED TO GET TO THE KITCHEN, RESISTED CONFIDENTIAL SECRETARY AND TRIED TO PUSH OUT OF BED, TOOK 2 STAFF TO REINFORCE THAT HE STAY IN BED. DISTRACTED WITH DINNER, BED ALARM ON. TOLERATING FOOD AND FLUIDS WITH SET UP AND CUING.
--- NOTE | 2022-03-24 03:58 | NUR ---
Patient anxious and uncooperative throughout night.
--- NOTE | 2022-03-24 16:30 | NUR ---
SHIFT SUMMARY; PATIENT WORKED WITH PT TODAY. HE IS AO TO SELF ONLY. HE IS UNABLE TO STAND WITH TWO PERSON ASSIST AND A GAIT BELT TO USE BEDSIDE COMMODE. HE DOES NOT CALL WHEN HE HAS NEEDS. REMAINS ON CAMERA FOR BEING A FALL RISK. HIS VITAL SIGNS ARE STABLE. PATIENT TAKES HIS MEDICATIONS WHOLE WITH WATER. HE NEEDS MODERATE ASSIST TO EAT. HE RECEIVES A BED BATH AND IS UNABLE TO DO HIS ADL'S WITHOUT MUCH ASSIST. HE IS SLOW TO RESPOND AND SHAKES WHEN REACHING FOR ANYTHING. HE HAS FLAT AFFECT AND SLEEPS MOST OF THE DAY.
--- NOTE | 2022-03-25 05:38 | NUR ---
A/OX1; SELF. IMPULSIVE; EASILY REDIRECTED. PRNs ORDERED FOR ANXIETY AND AGITATION. IM ZYPREXA SOMEWHAT EFFECTIVE. C/O DIFFICULTY PASSING BM; LAXATIVES GIVEN. UNSUCCESSFUL EFFORT ON BEDPAN. BED ALARM SET. CALL LIGHT IN REACH; ENCOURAGED TO MAKE NEEDS KNOWN. SLEEP PROMOTED.
--- NOTE | 2022-03-25 05:44 | NUR ---
A/OX1; SELF. IMPULSIVE; EASILY REDIRECTED THOUGH. PRNs ORDERED FOR ANXIETY AND AGITATION. IM ZYPREXA SOMEWHAT EFFECTIVE. C/O DIFFICULTY PASSING BM; LAXATIVES GIVEN. UNSUCCESSFUL EFFORT ON BEDPAN. BED ALARM SET. CALL LIGHT IN REACH; ENCOURAGED TO MAKE NEEDS KNOWN. SLEEP PROMOTED.
--- NOTE | 2022-03-25 18:11 | NUR ---
SHIFT SUMMARY PATIENT IS ALERT BUT NOT ORIENTED. VITAL SIGNS REVIEWED. PATIENT HAD SPEECH THERAPY ORDERED BY THIS RN. ST ORDERED PATIENT STRICT NPO FOR ASPIRATION PRECAUTIONS, WILL REVISIT TOMORROW. PATIENT HAS HAD NO OTHER ACUTE EVENTS THIS SHIFT. PATIENT HAS NOT COMPLAINED OF PAIN, NAUSEA, VOMITTING OR SOB THIS SHIFT. BED IN LOCKED AND LOWEST POSITION. CALL LIGHT IN PLACE. WILL MONITOR UNTIL SHIFT CHANGE.
--- NOTE | 2022-03-26 06:04 | NUR ---
A/OX1; SELF ONLY. IMPULSIVE AND ILLOGICAL. STRICT NPO FOR ASPIRATION PRECAUTIONS. RESTRAINTS INITIATED FOR PATIENT SAFETY. Q2 TURN. CALL LIGHT IN REACH; ENCOURAGED TO MAKE NEEDS KNOWN. SLEEP PROMOTED; PATIENT DID NOT SLEEP AGAIN THIS REPACK ROOM WORKER. BED ALARM SET.
--- NOTE | 2022-03-26 17:24 | NUR ---
PT IS ALERT TO SELF. PT REMAINS TO BE CONFUSED AND DISORIENTED. PT IS IMPULSIVE AND FORGETS LIMITATIONS. PT IS CALM AND COOPERATIVE WITH CARES AND MEDICATIONS. OT AND SPEECH THERAPY CAME TO EVALUATE PT. PT REMAINS TO BE NPO BUT CAN NOW HAVE PO MEDS CRUSHED UP WITH APPLESAUCE. BED IS IN LOWEST POSITION AND ALARM IS ON. CALL LIGHT IS WITHIN REACH AND PT SEAMS TO BE RESTING COMFORTABLY IN BED.
--- NOTE | 2022-03-27 05:46 | NUR ---
A/OX1; SELF ONLY. IMPULSIVE; PATIENT TRIED AT LEAST 8 TIMES TO GET OOB PRIOR TO INITIATION OF RESTRAINTS AT 2200. PRN IM HALDOL HAD MINIMAL APPARENT EFFECT ON PATIENT'S AGITATION OR ANXIETY. REASSURANCE PROVIDED AND REORIENTION ATTEMPTED THROUGHOUT SHIFT. PHONE CALL TO ROOMMATE, KAJAL, APPEARED TO HELP SOMEWHAT.THE MOST COMMON REASON FOR UNSAFE ATTEMPTS TO EXIT BED, STATED BY PATIENT, WAS "TO GET TO A JOB INTERVIEW." LAXATIVES GIVEN; PASSING GAS ON BEDPAN. SLEEP PROMOTED. BED ALARM SET, CALL LIGHT IN REACH; ENCOURAGED TO MAKE NEEDS KNOWN.
--- NOTE | 2022-03-27 18:29 | NUR ---
PT IS RESTING COMFORTABLY IN HIS CHAIR AND EATING DIET ORDERED. PT HAS BEEN PLEASANT WITH STAFF. PT CALL LIGHT WITHIN REACH.
--- NOTE | 2022-03-28 03:57 | NUR ---
OFFERRED PT DULCOLAX SUPPOSITORY, BUT HE DECLINED. HE REPORTS HE WANTS TO TAKE SOMETHING BY MOUTH. HE DOES HAVE SCHEDULED PO MEDS FOR AM, AND PT DID TOLERATE APPLESAUCE, SITTING IN 90 DEGREE ANGLE. WILL REPORT OFF TO ONCOMING SHIFT NO BM DOCUMENTED SINCE 03/13 - PT WOULD BENEFIT FROM MIRALAX VS ?. REPORTED THIS TO MOUNIKA CISSE ALSO.
--- NOTE | 2022-03-28 04:00 | NUR ---
SUCTIONED ORAL SECRETIONS X2 TONIGHT, ONCE AFTER NYSTATIN S&S GIVEN, AND JUST PRIOR TO GIVING APPLESAUCE TONIGHT. WHITE ORAL SECRETIONS SUCTIONED OUT.
--- NOTE | 2022-03-28 05:35 | NUR ---
SHIFT SUMMARY - PT HAS BEEN IMPULSIVE, ATTEMPTING TO CLIMB OUT OF BED, BUT WAS REDIRECTABLE AFTER MULTIPLE ATTEMPTS. BED ALARM IS ON FOR PT SAFETY. PT SUCTIONED X3 FOR ORAL SECRETIONS THOUGHOUT THE NIGHT. PT HAS BEEN SLEEPING FOR APPX 5 HOURS TONIGHT. PT HAS BEEN MORE COOPERATIVE WITH CARE THIS AM. PT HAS BEEN ABLE TO ASSIST WITH SOME CARE, TURNING FROM SIDE TO SIDE, STATING WHAT HIS NEEDS WERE (URINATE, DRY MOUTH, NEEDING SUCTION.) CALL LIGHT WITHIN REACH. BED IN LOW POSITION. BED ALARM ON FOR PT SAFETY. WILL CONTINUE TO MONITOR UNTIL AM SHIFT CHANGE.
--- NOTE | 2022-03-28 17:40 | NUR ---
SHIFT SUMMARY- PT IS ALERT AND ORIENTED TO SELF. PT HAS BEEN CONFUSED THROUGHOUT THE DAY BUT IS EASILY REDIRECTED. PT HAS BEEN UP TO CHAIR X2 FOR BREAKFAST AND LUNCH AND IS IN THE CHAIR READY FOR DINNER. CALL LIGHT IS WITHIN REACH AND CHAIR ALARM IS ON.
--- NOTE | 2022-03-29 04:27 | NUR ---
SHIFT SUMMARY ADMITTED FOR SEIZURES/ALCOHOL WITHDRAWALS. FULL CODE. GARBLED SPEECH. PLAN IS FOR PLACEMENT/GUARDIANSHIP. 2 PERSON MAX ASSIST TO BSC/CHAIR. INCONTINENT. PT IS CONFUSED AND IMPULSIVE, HALLUCINATES. REPORTED TO PULL OUT LINES/TUBES ON PREVIOUS SHIFTS. REMOVED IV AGAIN THIS SHIFT, NO IV ACCESS ORDER RECEIVED. ON [facility] SOFT/GRND MEAT DIET, NO STRAWS, NECTAR THICK FLUIDS. CIWAS DC'D ACCORDING TO ORDERS AND PROTOCOL.
--- NOTE | 2022-03-29 16:17 | NUR ---
SHIFT SUMMARY PT AWAKE AT START OF SHIFT, CHANGED FOR INCONTINENCE. BED BATH GIVEN. PT ASSISTED TO CHAIR AT BS FOR MEALS. PT UP USING GB AND FWW WITH 2P MAX ASSIST. PT LATER ASSISTED BACK TO BED AND CHAIR FOR MEALS USING SIT TO STAND LIFT. PT ABLE TO USE ARMS AND LEGS TO ASSIST WITH STANDING. PT ASSISTED UP TO BSC AND BACK TO CHAIR WITH THERAPY. PT FORGETFUL AND ATTEMPTS TO GET OOB AND CHAIR, SETTING OFF ALARMS FREQUENTLY. PT WITH ALCOHOLIC DEMENTIA; SPEECH IS GARBLED. MEDS TAKEN WHOLE WITH APPLESAUCE, TOLERATING WELL. PT IS WEAK AND DECONDITIONED. DENIED PAIN. DECLINED LIDOCAINE PATCH AND NYSTATIN SWISH AND SWALLOW. REPORTS THAT HE DOESN'T NEED THEM. PSORIASIS TO FACE; MEDICATION APPLIED. CALL LT IN REACH. CHAIR AND BED ALARM ON FOR SAFETY.
--- NOTE | 2022-03-30 05:40 | NUR ---
Patient resting in bed at this time.
[2022-03-30 06:29] LABS: BASOPHILS PERCENT AUTO 1 % (0-2); EOSINOPHILS ABSOLUTE AUTO 0.15 K/mm3 (0.00-0.68); EOSINOPHILS PERCENT AUTO 2 % (0-6); Hematocrit 33.6 % (37.0-53.0); Hemoglobin 11.5 g/dL (13.5-17.5); IMMATURE GRAN ABSOLUTE AUTO 0.01 K/mm3 (0.00-0.10); IMMATURE GRAN PERCENT AUTO 0 % (0-1); LYMPHOCYTES ABSOLUTE AUTO 1.34 K/mm3 (0.84-5.20); LYMPHOCYTES PERCENT AUTO 19 % (21-46); MONOCYTES ABSOLUTE AUTO 0.66 K/mm3 (0.16-1.47); MONOCYTES PERCENT AUTO 10 % (4-13); Mean Corpuscular HGB 36.5 pg (26.0-34.0); Mean Corpuscular HGB Conc 34.2 g/dL (31.5-36.5); Mean Corpuscular Volume 107 fL (80-100); NEUTROPHILS ABSOLUTE AUTO 4.67 K/mm3 (1.96-9.15); NEUTROPHILS PERCENT AUTO 68 % (41-73); Platelet Count 302 K/mm3 (150-400); RDW Coefficient Variation 11.9 % (11.7-14.2); RDW Standard Deviation 46.7 fL (35.1-46.3); Red Blood Cell Count 3.15 M/mm3 (4.30-5.90); White Blood Cell Count 6.93 K/mm3 (4.00-11.30)
[2022-03-30 06:57] LABS: Albumin, Blood 3.5 g/dL (3.4-5.0); Albumin/Globulin Ratio 0.9 (0.8-1.8); Bilirubin, Total 0.5 mg/dL (0.1-1.0); Bun/Creatinine Ratio 15.9 (12.0-20.0); Calcium, Blood 9.6 mg/dL (8.5-10.1); Creatinine, Blood 0.88 mg/dL (0.60-1.20); Globulin, Blood 4.1 g/dL (2.2-4.0); Potassium, Blood 3.6 mmol/L (3.5-5.5); Total Protein, Blood 7.6 g/dL (6.4-8.2)
--- NOTE | 2022-03-30 14:47 | NUR ---
SHIFT SUMMARY PT WOKE FOR CARE AT START OF SHIFT. CLEANED AND CHANGED FOR INCONTINENCE. PT THEN ASSISTED UP TO CHAIR FOR BREAKFAST USING SIT TO STAND LIFT. PT REMAINED IN CHAIR FOR A WHILE AND THEN SET OFF ALARMS TRYING TO GET UP. PT ASSISTED BACK TO BED FOR A NAP AND BACK UP FOR LUNCH. PT DID WELL EATING SOFT PUREE FOOD, BUT DOES NOT DO WELL WITH LIQUIDS. PT WANTED TO DRINK ENSURE FROM CONTAINER FOR LUNCH, BUT THEN PUT IT IN A GLASS WHEN STAFF LEFT RM. PT DRINKING FROM GLASS AND STARTED CHOKING. PT SEEMED TO DO OK WITH WATER AND THINNED ORANGE JUICE, BUT LIQUID THAT IS EVEN SLIGHTLY THICKENED HE CHOKES ON. MEDICATED AT START OF SHIFT FOR SLIGHT TEMP. TYLENOL EFFECTIVE. PT HAS BEEN VERY BUSY TODAY, WANTING OOB TO CHAIR AND THEN OUT OF CHAIR BACK TO BED FREQUENTLY. ASSISTED UP TO BSC FOR BM, BUT UNSUCCESSFUL. WORKING ON PUZZLES IN BED AT THIS TIME. BED ALARM ON FOR SAFETY. CALL LT IN REACH.
--- NOTE | 2022-03-31 05:03 | NUR ---
SHIFT SUMMARY PT A&O TO SELF- PT ABLE TO FOLLOW DIRECTIONS WITH TURNING IN BED- PT INCONTIENT OF URINE AT TIMES, PT USES URINAL- PT TOOK SCHEDULED MEDICATIONS -WHOLE IN APPLE SAUCE WITHOUT PROBLEMS, CALL LIGHT IN REACH, BED LOW POSITION, BED ALARM IN PLACE
--- NOTE | 2022-03-31 17:00 | NUR ---
PATIENT IS ALERT AND ORIENTED TO SELF, DATE, FOLLOWING DIRECTIONS. HE COULD NOT TELL ME WHY HE IS HERE IN THE HOSPITAL. PATIENT HAS BEEN WORKING WITH PT AND OT. HE IS A 2PA MOD/MAX FROM CHAIR TO BED. PATIENT LEANS BACKWARDS WHILE STANDING. HE WAS ABLE TO AMBULATE 10 FT WITH PT THIS MORNING. NURSING STAFF HAS BEEN USING SIT TO STAND TO TRANSFER THE PATIENT. HE WAS BEEN SITTING UP IN THE RECLINER MOST OF THE SHIFT. ST WORKED WITH THE PATIENT TODAY AND CONTINUED THE PUREE DIET. CAN USE THE URINAL IN THE RECLINER. WILL CONTINUE TO MONITOR
--- NOTE | 2022-04-01 05:21 | NUR ---
SHIFT SUMMARY PT A&O X 3 AT BEGINNING OF SHIFT- PT ANSWERED QUESTIONS APPROPRIATE- PT HAD INCREASED CONFUSION T/O NIGHT- PT SAT TO SIDE OF BED MULTIPLE TIMES T/O NIGHT- PT CONFUSED AND WOKE UP AND THOUGHT HE HAD TO GO TO WORK- PT WAS HALLUCINATING AND THOUGHT PEOPLE WERE STEALING HIS BELONGINGS- REORIENTED PT MANY TIMES AND ENCOURAGED PT TO STAY IN BED- PT AGITATED AND WANTED TO GO TO STORE FOR CIGARETTES- PT AGREED TO HAVE A NICOTINE PATCH APPLIED, BED LOW POSITION, CALL LIGHT WITHIN REACH, BED ALARM IN PLACE
--- NOTE | 2022-04-01 18:47 | NUR ---
SHIFT SUMMARY PT UP TO CHAIR FOR MEALS. STATES HE HAS A BAD BACK AND ITS PAINFUL TO SIT IN CHAIR. TOLERATING PUREE DIET WITH THIN LIQUIDS STILL. STARTED FOCUSING ON PAPERWORK THAT NEEDED COMPLETING AND NEEDED TO GET UP AND DO IT. CUING AND REMINDING HELPED PT WORK THROUGH SITUATION.
--- NOTE | 2022-04-02 05:06 | NUR ---
SHIFT SUMMARY PT UP TO CHAIR AT BEGINNING OF SHIFT- CALL FROM MONITOR SEVERAL TIMES THAT PT WAS ATTEMPTING TO GET OUT OF CHAIR- PT A&O TO SELF- PT CONFUSED AND TOLD THIS RN THAT HIS CONTRACT IS UP AND IS LEAVING TODAY- REORIENTED PT OF PLACE PT TOOK SCHEDULED MEDS WHOLE IN APPLE SAUCE- PT SLEPT FOR A FEW HOURS- ONCE AWAKE PT RETURNED TO BEING CONFUSED AND DEMANDING THAT HE WAS LEAVING- REORIENTED SEVERAL TIMES- BED LOW POSITION, CALL LIGHT WITHIN REACH, BED ALARM IN PLACE
[2022-04-02] MEDS ORDERED: DYAZIDE 37.5-21 EACH PO (06:42)
[2022-04-02] MEDS ORDERED: LOSA50 PO (06:42)
--- NOTE | 2022-04-02 10:40 | NUR ---
SISTER PT SISTER, ADELINA WoodsNISHANTConnorHariARROYO WAS CONTACTED. SHE LIVES IN [place] AND IS NOT HIS POA. PHONE # . SHE IS GOOD WITH TALKING WITH HIM ON THE PHONE.
--- NOTE | 2022-04-02 16:20 | NUR ---
EVENING NOTE PT ALERT AND COOPERATIVE. HE PARTICIPATED WITH P/T THIS MORNING, REFUSED OT THIS AFTERNOON. DANGLING ON THE SIDE OF THE TO EAT. NO ATTEMPT TO CLIMB OOB WITHOUT HELP. GOOD APPETITE. DENIED DISCOMFORT. NO IV. CONTINUE POC.
--- NOTE | 2022-04-03 05:13 | NUR ---
JONI HAD A QUIET NIGHT LAST NIGHT. NO COMPLAINTS OF PAIN OR DISCOMFORT. VOIDING PER URINAL CLEAR YELLOW URINE. NO CHANGES NOTED OVERNIGHT. HE WAS PLEASANT HAYES COOPERATIVVE WITH CARE
--- NOTE | 2022-04-03 12:00 | NUR ---
Spiritual care visit conducted. Patient is lying in bed and alert. Patient talks at length about his careers, his addictions, his regrets and his medical conditions. He also shares about his past suicide attempts and his struggles to find hope moving forward. We explore sources of meaning and value, his spiritual beliefs and ways to manage anxiety and depression. I normalize his feelings and struggles, reinforce helpful attitudes and perspectives and provide therapeutic listening, gentle veterans rehabilitation counselor and prayer. Patient responded well and showed signs of forgiveness of one's self, catharsis and renewed hope. I will continue to remain available to patient and family.
--- NOTE | 2022-04-03 15:22 | NUR ---
ROOM MATE ROOM MATE HERE. SHE BROUGHT PT HIS MAIL WHICH CONTAINS SOME BILLS. HAD HER PLACE THEM INT HE TOP DRAWER OF HIS NIGHT STAND. CALLED [facility] AND LET THEM KNOW. CONTINUE POC.
--- NOTE | 2022-04-03 18:36 | NUR ---
EVENING NOTE PT AWAKE AND ALERT. ROOM MATE CAME AND DROPPED OFF MAIL. HE HAS NEEDED 2 WITH FWW AND GAIT BELT TODAY. HE'S BEEN UNSTEADY. THIS AFTERNOON HE HAD A STOMACHE AFTER EATING THE [place]NA. SPRITE HELPED. MEDICATED WITH TYLENOL FOR HIS BACK PAIN. EFFECTIVE. NO IV. CONTINUE POC.
--- NOTE | 2022-04-04 06:27 | NUR ---
JONI SLEPT ALL NIGHT AFTER RECEIVING HIS HS MEDICATIONS. HE WAS FOUND ON HIS WAY INTO THE BATHROOM WHEN STAFF RAN IN AFTER THE ALARM WENT OFF. VERY UNSTEADY ON HIS FEET, HE HAD WORKED HIMSELF INTO A TIGHT POSITION BETWEEN HIS RECLINER AND THE BATHROOM DOOR. IT REQUIRED 3 STAFF TO MANEUVER HIM BACK TO A PLACE WHERE WE COULD ASSIST HIM WITH A FRONT WHEELED WALKER BACK TO BED. JONI HAD NO COMPLAINTS OF PAIN OR DISCOMFORT. HE WAS PLEASANT AND COOPERATIVE WITH CARE THROUGHOUT THE SHIFT
--- NOTE | 2022-04-04 10:58 | NUR ---
RN NOTE MR LEONARD IS ALERT, ORIENTATED TO NAME, GELY, SHARITA, MAR 2022. UP TO THE SHOWER AND TOILET/CHAIR THIS AM. WALKER, GAIT BELT AND ASSISTANCE. BED AND CHAIR ALARM IN USE, REMINDED TO CALL FOR ASSISTANCE AND HE SAID HE KNOWS THIS, BUT GETS UP WITHOUT CALLING FOR HELP. UNSTEADY ON HIS FEET AND HE TRIED TO SIT ON THE BED BEFORE BACKING UP TO IT. C/O CONSTIPATION, DUCULOX SUPPOSITORY GIVEN AND +BM SINCE.
--- NOTE | 2022-04-04 17:16 | NUR ---
SHIFT SUMMARY MR ROMERO HAS BEEN CALM AND COOPERATIVE TODAY. HE DOES GET UP OUT OF THE BED AND CHAIR WITHOUT USING THE CALL LIGHT, REMINDED TO PLEASE CALL US. BED AND CHAIR ALARMS IN USE, BED LOW, CALL LIGHT IN REACH. UP TO THE BATHROOM SEVERAL TIMES, WALKED IN THE HALLWAY TWICE WITH THERAPISTS. DENIED PAIN. ORIENTATED TO SELF, AND MAR 2022, BUT FORGETFUL CONVERSATION AND REQUIRING PROMPTING FOR BASIC CARE.
--- NOTE | 2022-04-05 04:28 | NUR ---
CONVEYOR TENDER SUMMARY NO ACUTE CHANGES. PT A/OX3. PLEASANT AND COOPERATIVE. PT USING CALL LIGHT INTERMITTANTLY; REMINDERS ABOUT CALL LIGHT/SAFETY. PT CONT TO COMPLAIN OF CONSTIPATION. GAVE MILK OF MAG W/PM MEDS. UP T/THE BATHROOM MULTIPLE TIMES W/GAS--NO BM. PT SLEPT INTERMITTANTLY T/O THE NIGHT. BED LOCKED/LOW. ALARM SET. CALL LIGHT ACCESSIBLE.
--- NOTE | 2022-04-05 10:58 | NUR ---
RN NOTE MR ROMERO IS OX3, CALM AND COOPERATIVE WITH CARE. HE DOES FORGET TO USE CALL LIGHT. BED AND CHAIR ALARMS IN USE. AMBULATING TO BATHROOM AND CHAIR WITH GAIT BELT AND WALKER, 1 PERSON STAND BY ASSIST. CALL LIGHT IN REACH.
--- NOTE | 2022-04-05 16:03 | NUR ---
Shift Summary Mr Rodriguez is orientated x3, forgetful and confused to recent instructions, forgets to use the call light or sometimes forgets to pull his trousers up before walking. Assisted to the bathroom multiple times, gait belt, walker and 1 person assistance. He's getting more steady, but his forgetfulness puts him at high fall risk. Bed and chair alarms in use. c/o constipation. He had duculox suppository again today and has several small BMs. He has been calm today, cooperative with care. Bed low, call light in reach.
--- NOTE | 2022-04-06 04:49 | NUR ---
CERAMICS TEST ENGINEER SUMMARY NO ACUTE CHANGES. A/OX3. CONT TO REPORT FEELING CONSTIPATED. GAVE MILK OF MAG WITH 2100 MEDS. NO BM. PT SLEPT RESTFULLY T/O THE NIGHT. LESS WAKEFUL/RESTLESS THAN PREVIOUS NIGHT. CALL LIGHT ACCESSIBLE. BED LOCKED AND LOW. BED ALARM SET.
--- NOTE | 2022-04-06 11:38 | NUR ---
RN NOTE MR ROMERO IS ORIENTED X3, FORGETFUL OF INSTRUCTIONS, DOESN'T USE CALL LIGHT BEFORE GETTING UP OUT OF BED. BED ALARM SET. HE HAS WALKED IN THE HALLS WITH PHYSICAL THERAPY AND MADE TRIPS TO THE BR WITH GAIT BELT, WALKER AND 1 PERSON ASSIST. CALM AND COOPERATIVE TODAY. BED LOW, CALL LIGHT IN REACH.
--- NOTE | 2022-04-06 16:26 | NUR ---
SHIFT SUMMARY MR ROMERO IS ORIENTATED X3, FORGETFUL. BED AND CHAIR ALARMS IN USE HE OFTEN FORGETS TO USE THE CALL LIGHT AND IS STILL UNSTEADY WALKING. USE OF GAIT BELT AND WALKER AND 1 PERSON ASSIST. UP TO THE BATHROOM FREQUENTLY, HE SAID HE IS HAVING FLATUS AND MANY SMALL BMS. C/O ABDOMINAL DISCOMFORT AND SAID HE FEELS CONSTIPATED. SOFT NON-DISTENDED ABDOMEN. GOOD PO INTAKE. NO NAUSEA. BED LOW, CALL LIGHT IN REACH.
--- NOTE | 2022-04-07 04:53 | NUR ---
AUTOMOTIVE MANUFACTURER SUMMARY A/OX3. PLEASANT AND COOPERATIVE. FORGETFUL. PT IN ON BED ALARM AND CAMERA MONITOR. WILL USE CALL LIGHT INTERMITTANTLY. PT HAS BEEN C/O OF CONSTIPATION AND FREQUENT URGES TO HAVE A BM WHILE PRODUCING NOTHING OR VERY LITTLE. PT REFUSED MILK OF MAG THIS EVENING. PT HAD QUESTIONS THIS SHIFT ABOUT PLAN OF CARE AND WHEN HE WOULD BE LEAVING THE HOSPITAL--NO RECALL OF BEING TOLD A PLAN FOR DISCHARGE. PT C/O INCREASED PAIN IN HIS BACK--GAVE TYLENOL. PT IS A 1PA W/FWW AND GAIT BELT. HE REMAINS A LITTLE WEAK/SHAKY ON HIS FEET. CALL LIGHT ACCESSIBLE. BED LOCKED/LOW.
--- NOTE | 2022-04-07 12:34 | NUR ---
PT HAS BEEN STRUGGLING THIS AM TO HAVE A BM. HAVE GIVEN ALL BOWEL MEDS. GAVE PT A MOM W/WARM PRUNE JUICE. HAVE PLACED A DULCOLAX SUPPOSITORY. FELT A HARD BM IN THE RECTAL VAULT WHILE PLACING SUPP. PT MIGHT BENEFIT FROM AN ENEMA. WILL MONITOR EFFECT OF SUPP.
--- NOTE | 2022-04-07 15:03 | NUR ---
ENEMAS ADMINISTERED A FLEETS OIL & SOAPS SUDS ENEMA WITH MOD EFFECT. PT HAD SMALL TO MOD BM WITH MODERATE RELIEF STATED BY PT. IS IN THE SHOWER NOW.
--- NOTE | 2022-04-07 17:50 | NUR ---
SHIFT SUMMARY PT A&O X 3. VSS. IS NOW HAVING LOOSE BM's AFTER BOWEL CARE MEDS AND 2 ENEMAS. STATES HE FEELS MUCH BETTER. NO LONGER IN PAIN. IS UP & DOWN TO THE RESTROOM FREQUENTLY. APPETITE IS MARGINAL. IS PLEASANT & COOPERATIVE. PLAN IS FOR EITHER PLACEMENT OR HOME WITH HH UPON DC.
--- NOTE | 2022-04-08 05:10 | NUR ---
CABLE TESTER SUMMARY: A&Ox3-4. PLEASANT AND COOPERATIVE WITH CARE. DOES NOT CALL FOR ASSISTANCE SECOND TO BOWEL MOVEMENT URGENCY RELATED TO RECENT ADMINISTRATION OF STOOL SOFTENERS D/T CONSTIPATION. ONE ACCIDENT THIS EVENING AND RECEIVED A SHOWER. NO OTHER ACUTE EVENTS AND HAS BEEN SLEEPING THE MAJORITY OF THE NIGHT HE APPARENTLY DID NOT SLEEP WELL THE LAST FEW NIGHTS. WILL REPORT TO ONCOMING RN.
--- NOTE | 2022-04-08 18:04 | NUR ---
SHIFT SUMMARY PT A&O X 4. VSS. IS PLEASANT, COOPERATIVE & SEEMS QUITE MOTIVATED TO IMPROVE. PARTICIPATED WITH ST, OT & PT TODAY WITH EXTRA WALKS WITH WALKER THROUGH THE HALLWAYS WITH STAFF. HIS GAIT IS STEADY & STRONG. HAS SAT UP IN THE CHAIR MOST OF THE SHIFT, OPTING TO NOT BE IN BED. NO CLINICAL CONCERNS TODAY. USES THE CALL LIGHT APPROPRIATELY.
--- NOTE | 2022-04-09 05:04 | NUR ---
SAP BW DEVELOPER SUMMARY: A&Ox3-4. CALLS APPROPRIATELY AND IS ABLE TO COMMUNICATE NEEDS EFFECTIVELY. PROVIDER NOTIFIED OF SBP <100 AT BEGINNING OF SHIFT WITHOUT DIZZINESS OR S/Sx HYPOTENSION. EARLY AM CHECK AT 100. PT REPORTED ENJOYING SEVERAL WALKS YESTERDAY AND HOPING TO GET MORE IN TODAY. ANTICIPATE DC HOME ON HOME HEALTH, PENDING RESOLUTION OF CONFLICT WITH ROOMMATE. NO ACUTE CONCERNS T/O SHIFT. WILL REPORT TO ONCOMING RN.
--- NOTE | 2022-04-09 16:56 | NUR ---
ALERT AND ORIENTED, MAKES NEEDS KNOWN, MEDICATED FOR PAIN WITH TYLENOL, DIGITAL MARKETING MANAGER TALKED WITH PATIENT AND ROOMATE ABOUT DISCHARGE AND HOME NEEDS. PATIENT AMBULATED IN HALLS MULTIPLE TIMES, STEADY GAIT, STAND BY ASSIST WHEN OUT OF THE SCU, REMOVED CAMERA MONITOR, BED ALARM FOR PM SHIFT TO PREVENT FALLS, MULTIPLE VOIDS WITH MINIMAL AMOUNTS OUT INCREASES FALL RISK. VSS, POSSIBLE DISCHARGE HOME TOMORROW, CALL LIGHT WITH IN REACH, WILL RELAY TO PM RN
--- NOTE | 2022-04-10 05:28 | NUR ---
SHIFT SUMMARY Pt has rested quietly with eyes closed most of this shift. Has used urinal appropriately. Pt A&O X 4. Ambulates idependently. Anticipates discharge today. No acute changes.
--- NOTE | 2022-04-10 19:33 | NUR ---
SHIFT SUMMARY PTN EXPECTING TO D/C TODAY, BUT THIS DID NOT HAPPEN. PTN DID HAVE INTERVIEW WITH [facility] TODAY, AND WAS ACCEPTED, BUT THEY APPARENTLY NEED TO GET PAPERWORK IN PLACE PRIOR TO MOVE. PTN DISAPPOINTED, VISITED BY HIS ROOMMATE GARIMA WHO MAY BE HELPING PTN BETWEEN D/C FROM HOSPITAL UNTIL MOVE TO FACILITY. PTN WANTING TO INCREASE DIET, BUT SEEN BY SPEECH THERAPY WHO CONTINUE TO RECOMMEND SOFT MECHANICAL FOODS FOR BOTH SWALLOWING AND CHEWING CAPABILITY. CONTINUE TO MONITOR.
--- NOTE | 2022-04-11 05:51 | NUR ---
SHIFT SUMMARY 56 YR M ADMITTED SINCE 03/12/22. FULL CODE. NO ACUTE CHANGES THIS SHIFT. PT IS A&O X 4 AND IS INDEPENDANT IN THE ROOM. PLAN IS FOR HIM TO DISCHARGE TODAY HOME WITH HIS ROMMATE AND THEN TO ASSISTED LIVING IN ABOUT A MONTH. PT IS EXCITED TO GO HOME.
[2022-04-11] MEDS ORDERED: FOLI1 PO (16:16)
[2022-04-11] MEDS ORDERED: SENN187 PO (16:17)
[2022-04-11] MEDS ORDERED: QUET100 PO (16:17)
[2022-04-11] MEDS ORDERED: B-1100 M1 PO (16:18)
--- NOTE | 2022-04-11 17:52 | NUR ---
SHIFT SUMMARY PTN ANXIOUS TO D/C, DRESSED EARLY. ROOMMATE GARIMA ARRIVED AROUND [id number], AND PTN D/C PAPERWORK REVIEWED. MEDICATIONS FAXED TO [facility]. PTN ESCORTED TO EXIT. ALL QUESTIONS ANSWERED, ENCOURAGEMENT AND EDUCATION REGARDING SOBRIETY. PTN D/C'D WITH POSITIVE ATTITUDE AND READY FOR CHANGE.
== END 2022-04-11 17:13 | disposition home health service (06) | DRG 896 ==
LOC: ER 21:48 → ICUW 03-12 03:12 → MEDS 03-12 03:12 → ICUW 03-12 03:29 → MEDS 03-18 15:55 → ENPENDDIS 04-10 17:40 → MEDS 04-11 17:13
PROVIDERS: Family Medicine; Internal Medicine; Student in an Organized Health Care Education/Training Program; ADMIT Family Medicine
PROC: HZ2ZZZZ Detoxification Services for Substance Abuse Treatment (ICD-10-PCS; principal; 2022-03-12)
PROC: 3E0234Z Introduction of Serum, Toxoid and Vaccine into Muscle, Percutaneous Approach (ICD-10-PCS; 2022-03-12)
DX: F10.239 Alcohol dependence with withdrawal, unspecified (principal); J98.59 Other diseases of mediastinum, not elsewhere classified; E87.1 Hypo-osmolality and hyponatremia; D61.818 Other pancytopenia; E51.2 Wernicke's encephalopathy; B37.0 Candidal stomatitis; Z23 Encounter for immunization; Z28.21 Immunization not carried out because of patient refusal; R56.9 Unspecified convulsions; I10 Essential (primary) hypertension; F17.210 Nicotine dependence, cigarettes, uncomplicated; D64.9 Anemia, unspecified; R74.01 Elevation of levels of liver transaminase levels; G31.84 Mild cognitive impairment of uncertain or unknown etiology; E83.42 Hypomagnesemia; Y90.0 Blood alcohol level of less than 20 mg/100 ml; B36.0 Pityriasis versicolor; K59.00 Constipation, unspecified; Z79.899 Other long term (current) drug therapy
CPT/HCPCS: 36415; 70450; 71045; 71260; 74230; 80048; 80053; 82746; 83735; 83930; 83935; 84100; 84295; 84300; 84443; 85025; 90471; 90714; 92526; 92610; 92611; 93005; 93010; 96365; 96367; 96375; 97110; 97116; 97129; 97162; 97166; 97530; 97535; 99285-25; A9270; G0480; J1630; J1650; J2060; J2405; J3411; J3475; J7030; J7050; Q9967

== ENCOUNTER → 2022-06-12 | Outpatient (CLI) | payer OTHER ==
[~2022-06-12] MED LIST: B-1100 M1 PO; DYAZIDE 37.5-21 EACH PO; FOLI1 PO; LOSA50 PO; QUET100 PO; SENN187 PO
[2022-06-12 19:20] LABS: BASOPHILS ABSOLUTE AUTO 0.08 K/mm3 (0.00-0.23); BASOPHILS PERCENT AUTO 2 % (0-2); EOSINOPHILS ABSOLUTE AUTO 0.21 K/mm3 (0.00-0.68); EOSINOPHILS PERCENT AUTO 4 % (0-6); Hematocrit 37.1 % (37.0-53.0); Hemoglobin 12.7 g/dL (13.5-17.5); IMMATURE GRAN ABSOLUTE AUTO 0.01 K/mm3 (0.00-0.10); IMMATURE GRAN PERCENT AUTO 0 % (0-1); LYMPHOCYTES ABSOLUTE AUTO 1.73 K/mm3 (0.84-5.20); LYMPHOCYTES PERCENT AUTO 32 % (21-46); MONOCYTES ABSOLUTE AUTO 0.45 K/mm3 (0.16-1.47); MONOCYTES PERCENT AUTO 8 % (4-13); Mean Corpuscular HGB Conc 34.2 g/dL (31.5-36.5); Mean Corpuscular Volume 94 fL (80-100); NEUTROPHILS ABSOLUTE AUTO 3.01 K/mm3 (1.96-9.15); NEUTROPHILS PERCENT AUTO 55 % (41-73); Platelet Count 238 K/mm3 (150-400); RDW Coefficient Variation 11.9 % (11.7-14.2); RDW Standard Deviation 41.1 fL (35.1-46.3); Red Blood Cell Count 3.97 M/mm3 (4.30-5.90); White Blood Cell Count 5.49 K/mm3 (4.00-11.30)
[2022-06-12 19:53] LABS: Albumin/Globulin Ratio 1.1 (0.8-1.8); Bilirubin, Direct 0.1 mg/dL (0.0-0.3); Bilirubin, Indirect 0.4 mg/dL (0.1-0.7); Bilirubin, Total 0.5 mg/dL (0.1-1.0); Bun/Creatinine Ratio 27.3 (12.0-20.0); Calcium, Blood 9.6 mg/dL (8.5-10.1); Creatinine, Blood 0.81 mg/dL (0.60-1.20); Globulin, Blood 3.7 g/dL (2.2-4.0); Potassium, Blood 3.9 mmol/L (3.5-5.5); Total Protein, Blood 7.7 g/dL (6.4-8.2)
== END | disposition home or self-care (01) ==
LOC: LAB SHORT 13:55
PROVIDERS: Family Medicine
DX: N18.30 Chronic kidney disease, stage 3 unspecified (principal)
CPT/HCPCS: 80053; 82248; 85025